=== PATIENT | male | born 1950 | race Caucasian/White ===

== ENCOUNTER 2021-04-04 14:10 | Inpatient (IN) | payer OTHER, MEDICARE ==
[~2021-04-04] VITALS: Ht 167.6 cm; Wt 105.1 kg
[2021-04-04 14:11] VITALS: BP 126/63
[2021-04-04 17:02] VITALS: BP 134/79
[2021-04-04] MEDS ORDERED: LEVOFLOXACIN 750 MG/D5W 150 ML 150 ML IV SCH (18:00)
[2021-04-04] MEDS ORDERED: MORPHINE 2 MG SYG IVP SCH (18:00)
[2021-04-04] MEDS ORDERED: ACETAMINOPHEN 325 MG TAB PO SCH (18:00)
[2021-04-04] MEDS ORDERED: ONDANSETRON 4MG INJ IVP SCH (18:00)
[2021-04-04 18:56] VITALS: BP 128/72
[2021-04-04 19:14] LABS: BASOPHILS % (AUTO) 0.3 % (0.0-5.0); EOSINOPHILS % (AUTO) 0.8 % (0.0-8.0); LYMPHOCYTES % (AUTO) 12.7 % (21.0-51.0); MEAN CORPUSCULAR HEMOGLOBIN 26.7 pg (27.0-33.0); MEAN CORPUSCULAR HGB CONC 31.1 g/dL (32.0-36.0); MEAN CORPUSCULAR VOLUME 85.6 fL (79-99); MONOCYTES % (AUTO) 9.4 % (3.0-13.0); NEUTROPHILS % (AUTO) 75.7 % (40.0-77.0); PLATELET COUNT (AUTO) 334 K/uL (130-400); RED BLOOD CELL COUNT(AUTO) 4.09 MIL/uL (4.50-6.20); RED CELL DISTRIBUTION WIDTH 13.5 % (11.0-15.5); WHITE BLOOD COUNT (AUTO) 14.1 K/uL (4.8-10.8)
[2021-04-04 19:28] LABS: INR 1.04 (0.85-1.15); PROTHROMBIN TIME 11.3 SEC (9.6-11.6)
[2021-04-04 19:34] LABS: CREATININE 1.4 mg/dL (0.5-1.5); POTASSIUM 5.7 mmol/L (3.5-5.1)
[2021-04-04 19:39] VITALS: BP 124/81
[2021-04-04 19:41] LABS: ALBUMIN 3.1 g/dL (3.5-5.0); BILIRUBIN,TOTAL 0.3 mg/dL (0.2-1.0); TOTAL PROTEIN, SERUM 8.5 g/dL (6.0-8.3)
[2021-04-04] MEDS: INSULIN HUMULIN R 100 UNIT/ML 3ML SQ SCH (21:00)
[2021-04-04] MEDS ORDERED: ONDANSETRON 4MG INJ IV PRN (21:00)
[2021-04-04] MEDS: HYDROCODONE/ACETAMINOPHEN 5/325 MG TAB PO PRN (22:25)
[2021-04-04] MEDS: FAMOTIDINE 20MG TAB PO SCH (22:25)
[2021-04-04] MEDS: KAYEXALATE 15GM/60ML PO SCH (23:24)
[2021-04-05] VITALS (7 sets, daily range): BP systolic 93–148; BP diastolic 58–81
[2021-04-05] MEDS ORDERED: CHOL200012 PO (01:35)
[2021-04-05] MEDS ORDERED: ASPI-1114 PO (01:35)
[2021-04-05] MEDS ORDERED: FOLI0.4T6 PO (01:35)
[2021-04-05] MEDS ORDERED: PIOG30TA70 PO (01:35)
[2021-04-05] MEDS ORDERED: LISI20TA24 PO (01:35)
[2021-04-05] MEDS ORDERED: FURO40TA5 PO (01:35)
[2021-04-05] MEDS ORDERED: PRAV40TA3 PO (01:35)
[2021-04-05] MEDS ORDERED: SITA100T12 PO (01:35)
[2021-04-05] MEDS ORDERED: METF-446 PO (01:35)
[2021-04-05] MEDS ORDERED: VITA-395 PO (01:35)
[2021-04-05] MEDS: FUROSEMIDE 20MG VIAL IV SCH ×2 (03:32→11:33)
[2021-04-05] MEDS: KAYEXALATE 15GM/60ML PO SCH (05:30)
[2021-04-05] MEDS: INSULIN HUMULIN R 100 UNIT/ML 3ML SQ SCH ×5 (07:30→21:21)
[2021-04-05 07:55] LABS: BASOPHILS % (AUTO) 0.2 % (0.0-5.0); EOSINOPHILS % (AUTO) 1.2 % (0.0-8.0); HEMATOCRIT 36.1 % (42-54); LYMPHOCYTES % (AUTO) 11.4 % (21.0-51.0); MEAN CORPUSCULAR HEMOGLOBIN 26.4 pg (27.0-33.0); MEAN CORPUSCULAR HGB CONC 30.5 g/dL (32.0-36.0); MEAN CORPUSCULAR VOLUME 86.6 fL (79-99); MONOCYTES % (AUTO) 9.5 % (3.0-13.0); NEUTROPHILS % (AUTO) 76.1 % (40.0-77.0); PLATELET COUNT (AUTO) 315 K/uL (130-400); RED BLOOD CELL COUNT(AUTO) 4.17 MIL/uL (4.50-6.20); RED CELL DISTRIBUTION WIDTH 13.8 % (11.0-15.5); WHITE BLOOD COUNT (AUTO) 12.9 K/uL (4.8-10.8)
[2021-04-05 08:14] LABS: CREATININE 1.4 mg/dL (0.5-1.5); MAGNESIUM 1.8 mg/dL (1.80-2.40); PHOSPHORUS 4.5 mg/dL (2.5-4.9); POTASSIUM 5.9 mmol/L (3.5-5.1)
[2021-04-05 08:30] LABS: HEMOGLOBIN A1C 12.3 % (4.0-6.0)
[2021-04-05] MEDS ORDERED: FAMOTIDINE 20MG TAB PO SCH (09:00)
[2021-04-05] MEDS ORDERED: LEVOFLOXACIN 750 MG/D5W 150 ML 150 ML IV SCH (09:00)
[2021-04-05] MEDS: ENOXAPARIN SODIUM 30 MG/0.3 ML SQ SCH (10:12)
[2021-04-05] MEDS: FAMOTIDINE 20MG TAB PO SCH (10:12)
[2021-04-05 11:29] LABS: CREATININE 1.3 mg/dL (0.5-1.5); POTASSIUM 5.5 mmol/L (3.5-5.1)
[2021-04-05] MEDS: HYDROCODONE/ACETAMINOPHEN 5/325 MG TAB PO PRN ×2 (12:56→20:48)
[2021-04-05 13:06] LABS: APPEARANCE,URINE Clear (CLEAR); BILIRUBIN,URINE Negative (NEGATIVE); COLOR,URINE Yellow (YELLOW); GLUCOSE, URINE (UA) Negative (NEGATIVE); KETONES,URINE Negative (NEGATIVE); LEUKOCYTE ESTERASE ,URINE Negative (NEGATIVE); NITRATE,URINE Negative (NEGATIVE); OCCULT BLOOD,URINE Negative (NEGATIVE); PROTEIN,URINE Negative (NEGATIVE); UROBILINOGEN,URINE 0.2 mg/dL (0.2-1.0)
[2021-04-05] MEDS ORDERED: VANCOMYCIN PROTOCOL PER PHARMACY IV SCH (14:30)
[2021-04-05] MEDS ORDERED: CEFAZOLIN SODIUM 1 GM VIAL IVP SCH (14:30)
[2021-04-05] MEDS ORDERED: [UNRECOGNIZED DRUG - REMARK] MISC STA (15:13)
[2021-04-05] MEDS ORDERED: GADOTERATE MEGLUMINE 5 MMOL/10 ML VIAL IV ONE (15:56)
[2021-04-05] MEDS ORDERED: RENAL DOSE IV SCH (16:00)
[2021-04-05] MEDS ORDERED: KAYEXALATE 15GM/60ML PO ONE (16:00)
[2021-04-05] MEDS: VANCOMYCIN 1.5GM/NS 250ML IV SCH ×2 (17:00)
[2021-04-05] MEDS: MEROPENEM 1 GM VIAL IVP SCH (17:00)
[2021-04-05] MEDS ORDERED: KAYEXALATE 15GM/60ML ONE (18:16)
[2021-04-05] MEDS: INSULIN GLARGINE 100 UNITS/ML 10 ML VIAL SQ SCH (21:21)
[2021-04-06] VITALS (8 sets, daily range): BP systolic 118–152; BP diastolic 64–77
[2021-04-06] MEDS: FUROSEMIDE 20MG VIAL IV SCH ×2 (00:18→11:33)
[2021-04-06] MEDS: MEROPENEM 1 GM VIAL IVP SCH ×2 (05:21→15:52)
[2021-04-06 06:46] LABS: BASOPHILS % (AUTO) 0.3 % (0.0-5.0); EOSINOPHILS % (AUTO) 2.1 % (0.0-8.0); HEMATOCRIT 34.8 % (42-54); LYMPHOCYTES % (AUTO) 10.4 % (21.0-51.0); MEAN CORPUSCULAR HEMOGLOBIN 26.1 pg (27.0-33.0); MEAN CORPUSCULAR HGB CONC 30.2 g/dL (32.0-36.0); MEAN CORPUSCULAR VOLUME 86.6 fL (79-99); MONOCYTES % (AUTO) 9.8 % (3.0-13.0); NEUTROPHILS % (AUTO) 76.2 % (40.0-77.0); PLATELET COUNT (AUTO) 314 K/uL (130-400); RED BLOOD CELL COUNT(AUTO) 4.02 MIL/uL (4.50-6.20); RED CELL DISTRIBUTION WIDTH 13.6 % (11.0-15.5); WHITE BLOOD COUNT (AUTO) 13.1 K/uL (4.8-10.8)
[2021-04-06 07:03] LABS: ALBUMIN 2.5 g/dL (3.5-5.0); BILIRUBIN,TOTAL 0.2 mg/dL (0.2-1.0); CREATININE 1.2 mg/dL (0.5-1.5); CRP QUANTITATIVE 159.4 mg/L (0.00-9.0); POTASSIUM 4.9 mmol/L (3.5-5.1); TOTAL PROTEIN, SERUM 7.5 g/dL (6.0-8.3)
[2021-04-06 07:48] LABS: ERYTHROCYTE SEDIMENTATION RATE 80 MM/HR (0-20)
[2021-04-06] MEDS: INSULIN HUMULIN R 100 UNIT/ML 3ML SQ SCH ×7 (08:49→20:17)
[2021-04-06] MEDS: FAMOTIDINE 20MG TAB PO SCH (08:50)
[2021-04-06] MEDS: ENOXAPARIN SODIUM 30 MG/0.3 ML SQ SCH (08:50)
[2021-04-06] MEDS: HYDROCODONE/ACETAMINOPHEN 5/325 MG TAB PO PRN ×2 (11:31→20:19)
[2021-04-06] MEDS: VANCOMYCIN 1.5GM/NS 250ML IV SCH ×2 (15:52)
[2021-04-06] MEDS: SIMVASTATIN 20 MG TABLET PO SCH (20:15)
[2021-04-06] MEDS: INSULIN GLARGINE 100 UNITS/ML 10 ML VIAL SQ SCH (20:16)
[2021-04-07 00:04] VITALS: BP 121/59
[2021-04-07] MEDS: FUROSEMIDE 20MG VIAL IV SCH ×3 (00:15→23:43)
[2021-04-07] MEDS: HYDROCODONE/ACETAMINOPHEN 5/325 MG TAB PO PRN ×4 (00:16→20:17)
[2021-04-07] MEDS: MEROPENEM 1 GM VIAL IVP SCH ×2 (03:19→17:37)
[2021-04-07 03:43] VITALS: BP 123/58
[2021-04-07 04:56] LABS: BASOPHILS % (AUTO) 0.3 % (0.0-5.0); EOSINOPHILS % (AUTO) 2.4 % (0.0-8.0); HEMATOCRIT 32.2 % (42-54); LYMPHOCYTES % (AUTO) 13.5 % (21.0-51.0); MEAN CORPUSCULAR HEMOGLOBIN 26.8 pg (27.0-33.0); MEAN CORPUSCULAR HGB CONC 31.7 g/dL (32.0-36.0); MEAN CORPUSCULAR VOLUME 84.5 fL (79-99); MONOCYTES % (AUTO) 11.4 % (3.0-13.0); PLATELET COUNT (AUTO) 333 K/uL (130-400); RED BLOOD CELL COUNT(AUTO) 3.81 MIL/uL (4.50-6.20); RED CELL DISTRIBUTION WIDTH 13.4 % (11.0-15.5); WHITE BLOOD COUNT (AUTO) 14.6 K/uL (4.8-10.8)
[2021-04-07] MEDS: INSULIN HUMULIN R 100 UNIT/ML 3ML SQ SCH ×7 (06:52→23:46)
[2021-04-07 07:46] VITALS: BP 127/62
[2021-04-07] MEDS: CHOLECALCIFEROL 50 MCG PO SCH (09:00)
[2021-04-07] MEDS: ASPIRIN 81MG CHEW TAB PO SCH (09:04)
[2021-04-07] MEDS: LISINOPRIL 20 MG TABLET PO SCH (09:05)
[2021-04-07] MEDS: FAMOTIDINE 20MG TAB PO SCH (09:05)
[2021-04-07] MEDS: FOLIC ACID 1 MG TABLET PO SCH (09:05)
[2021-04-07] MEDS: ENOXAPARIN SODIUM 30 MG/0.3 ML SQ SCH (09:05)
[2021-04-07 10:50] VITALS: BP 125/61
[2021-04-07 11:37] LABS: ALBUMIN 2.2 g/dL (3.5-5.0); BILIRUBIN,TOTAL 0.2 mg/dL (0.2-1.0); CREATININE 1.2 mg/dL (0.5-1.5); POTASSIUM 4.1 mmol/L (3.5-5.1)
[2021-04-07] MEDS ORDERED: COMPOUND IV REFRIGERATED 1 EACH IVSOLN MISC PRN (12:30)
[2021-04-07 16:23] VITALS: BP 135/65
[2021-04-07] MEDS ORDERED: IOHEXOL-350 50ML VIAL IV ONE (18:07)
[2021-04-07] MEDS ORDERED: IOHEXOL 350 MG/ML 100ML INFUS..BTL IV ONE (18:07)
[2021-04-07 20:00] VITALS: BP 134/65
[2021-04-07] MEDS: VANCOMYCIN KIT 1 GM/250 ML IV.KIT IV SCH (23:42)
[2021-04-07] MEDS: 0.9% NACL 250ML 250 ML IV SCH (23:43)
[2021-04-07] MEDS: SIMVASTATIN 20 MG TABLET PO SCH (23:43)
[2021-04-07] MEDS: INSULIN GLARGINE 100 UNITS/ML 10 ML VIAL SQ SCH (23:45)
[2021-04-08] MEDS: HYDROCODONE/ACETAMINOPHEN 5/325 MG TAB PO PRN ×3 (03:00→18:50)
[2021-04-08] MEDS: MEROPENEM 1 GM VIAL IVP SCH ×2 (03:39→17:32)
[2021-04-08 04:08] VITALS: BP 131/65
[2021-04-08 05:48] LABS: BASOPHILS % (AUTO) 0.4 % (0.0-5.0); LYMPHOCYTES % (AUTO) 14.2 % (21.0-51.0); MEAN CORPUSCULAR HGB CONC 30.6 g/dL (32.0-36.0); MEAN CORPUSCULAR VOLUME 84.9 fL (79-99); NEUTROPHILS % (AUTO) 68.9 % (40.0-77.0); PLATELET COUNT (AUTO) 331 K/uL (130-400); RED BLOOD CELL COUNT(AUTO) 3.77 MIL/uL (4.50-6.20); RED CELL DISTRIBUTION WIDTH 13.3 % (11.0-15.5); WHITE BLOOD COUNT (AUTO) 15.6 K/uL (4.8-10.8)
[2021-04-08] MEDS: INSULIN HUMULIN R 100 UNIT/ML 3ML SQ SCH ×7 (06:54→20:07)
[2021-04-08 07:33] VITALS: BP 136/73
[2021-04-08] MEDS: VANCOMYCIN KIT 1 GM/250 ML IV.KIT IV SCH (08:20)
[2021-04-08] MEDS: LISINOPRIL 20 MG TABLET PO SCH (08:21)
[2021-04-08] MEDS: ASPIRIN 81MG CHEW TAB PO SCH (08:21)
[2021-04-08] MEDS: FAMOTIDINE 20MG TAB PO SCH (08:21)
[2021-04-08] MEDS: 0.9% NACL 250ML 250 ML IV SCH (08:21)
[2021-04-08] MEDS: FOLIC ACID 1 MG TABLET PO SCH (08:21)
[2021-04-08] MEDS: ENOXAPARIN SODIUM 30 MG/0.3 ML SQ SCH (08:22)
[2021-04-08] MEDS: CHOLECALCIFEROL 50 MCG PO SCH (08:22)
[2021-04-08] MEDS: FUROSEMIDE 20MG VIAL IV SCH (11:50)
[2021-04-08 12:00] VITALS: BP 134/68
[2021-04-08 16:00] VITALS: BP 137/62
[2021-04-08] MEDS: SIMVASTATIN 20 MG TABLET PO SCH (19:59)
[2021-04-08 20:00] VITALS: BP 131/61
[2021-04-08] MEDS: INSULIN GLARGINE 100 UNITS/ML 10 ML VIAL SQ SCH (20:06)
[2021-04-09] VITALS (7 sets, daily range): BP systolic 105–147; BP diastolic 54–74
[2021-04-09] MEDS: FUROSEMIDE 20MG VIAL IV SCH ×3 (00:06→23:29)
[2021-04-09] MEDS: MEROPENEM 1 GM VIAL IVP SCH ×2 (02:56→16:57)
[2021-04-09] MEDS: HYDROCODONE/ACETAMINOPHEN 5/325 MG TAB PO PRN ×2 (04:25→12:30)
[2021-04-09] MEDS ORDERED: MORPHINE 2 MG SYG ONE (05:35)
[2021-04-09] MEDS: INSULIN HUMULIN R 100 UNIT/ML 3ML SQ SCH ×7 (05:42→21:21)
[2021-04-09] MEDS ORDERED: VANCOMYCIN 500MG+NS 100ML IVPB IV SCH (06:00)
[2021-04-09] MEDS ORDERED: MORPHINE 2 MG SYG IVP PRN (06:00)
[2021-04-09] MEDS ORDERED: 0.9%NACL 100ML 100 ML IV SCH (06:00)
[2021-04-09] MEDS: ASPIRIN 81MG CHEW TAB PO SCH (08:43)
[2021-04-09] MEDS: FOLIC ACID 1 MG TABLET PO SCH (08:43)
[2021-04-09] MEDS: FAMOTIDINE 20MG TAB PO SCH (08:43)
[2021-04-09] MEDS: ENOXAPARIN SODIUM 30 MG/0.3 ML SQ SCH (08:44)
[2021-04-09] MEDS: CHOLECALCIFEROL 50 MCG PO SCH (08:44)
[2021-04-09] MEDS: LISINOPRIL 20 MG TABLET PO SCH (08:44)
[2021-04-09] MEDS: SIMVASTATIN 20 MG TABLET PO SCH (20:11)
[2021-04-09] MEDS: INSULIN GLARGINE 100 UNITS/ML 10 ML VIAL SQ SCH (21:21)
[2021-04-09] MEDS ORDERED: HYDROCODONE/ACETAMINOPHEN 5/325 MG TAB ONE (22:24)
[2021-04-10] MEDS: MEROPENEM 1 GM VIAL IVP SCH ×2 (03:35→15:26)
[2021-04-10 04:00] VITALS: BP 139/74
[2021-04-10] MEDS: INSULIN HUMULIN R 100 UNIT/ML 3ML SQ SCH ×7 (06:41→21:10)
[2021-04-10] MEDS: HYDROCODONE/ACETAMINOPHEN 5/325 MG TAB PO PRN ×3 (07:50→20:20)
[2021-04-10 07:59] VITALS: BP 107/60
[2021-04-10] MEDS: CHOLECALCIFEROL 50 MCG PO SCH (09:00)
[2021-04-10] MEDS: LISINOPRIL 20 MG TABLET PO SCH (09:20)
[2021-04-10] MEDS: FAMOTIDINE 20MG TAB PO SCH (09:20)
[2021-04-10] MEDS: ASPIRIN 81MG CHEW TAB PO SCH (09:20)
[2021-04-10] MEDS: FOLIC ACID 1 MG TABLET PO SCH (09:20)
[2021-04-10] MEDS: ENOXAPARIN SODIUM 30 MG/0.3 ML SQ SCH (09:21)
[2021-04-10 11:39] VITALS: BP 134/72
[2021-04-10] MEDS: FUROSEMIDE 20MG VIAL IV SCH (12:01)
[2021-04-10] MEDS: GENTAMICIN 15 GM CREAM TP SCH (15:26)
[2021-04-10 16:00] VITALS: BP 141/72
[2021-04-10 16:01] LABS: INR 1.06 (0.85-1.15); PROTHROMBIN TIME 11.5 SEC (9.6-11.6)
[2021-04-10 16:02] LABS: PARTIAL THROMBOPLASTIN TIME 29.6 SEC (26.3-35.5)
[2021-04-10] MEDS ORDERED: VANCOMYCIN 750MG VIAL ONE (18:18)
[2021-04-10] MEDS ORDERED: 0.9% NACL 250ML 250 ML ONE (18:19)
[2021-04-10 20:00] VITALS: BP 143/73
[2021-04-10] MEDS ORDERED: 0.9%NACL 100ML 100 ML IV SCH (20:00)
[2021-04-10] MEDS ORDERED: VANCOMYCIN 500MG+NS 100ML IVPB IV SCH (20:00)
[2021-04-10] MEDS: SIMVASTATIN 20 MG TABLET PO SCH (20:17)
[2021-04-10] MEDS: INSULIN GLARGINE 100 UNITS/ML 10 ML VIAL SQ SCH (21:09)
[2021-04-11] VITALS: BP 140/72
[2021-04-11] MEDS: MEROPENEM 1 GM VIAL IVP SCH ×2 (03:43→17:02)
[2021-04-11 04:00] VITALS: BP 135/73
[2021-04-11] MEDS: INSULIN HUMULIN R 100 UNIT/ML 3ML SQ SCH ×6 (06:04→17:04)
[2021-04-11] MEDS: HYDROCODONE/ACETAMINOPHEN 5/325 MG TAB PO PRN (07:57)
[2021-04-11 08:02] VITALS: BP 121/63
[2021-04-11] MEDS: CHOLECALCIFEROL 50 MCG PO SCH (09:00)
[2021-04-11] MEDS: FOLIC ACID 1 MG TABLET PO SCH (10:23)
[2021-04-11] MEDS: FAMOTIDINE 20MG TAB PO SCH (10:23)
[2021-04-11] MEDS: ASPIRIN 81MG CHEW TAB PO SCH (10:23)
[2021-04-11] MEDS: LISINOPRIL 20 MG TABLET PO SCH (10:23)
[2021-04-11] MEDS: ENOXAPARIN SODIUM 30 MG/0.3 ML SQ SCH (10:27)
[2021-04-11] MEDS: GENTAMICIN 15 GM CREAM TP SCH (10:31)
[2021-04-11] MEDS: FUROSEMIDE 20MG VIAL IV SCH ×2 (11:35)
[2021-04-11 12:00] VITALS: BP 147/71
[2021-04-11 16:00] VITALS: BP 139/78
== END 2021-04-11 18:15 | DRG 623 ==
LOC: EDH 14:10 → EDUNIT# 14:10 → EDHIP 14:11 → 3DH 04-06 10:00
PROVIDERS: ADMIT Hospitalist; ATTEND Hospitalist
PROC: 0JBQ0ZZ Excision of Right Foot Subcutaneous Tissue and Fascia, Open Approach (ICD-10-PCS; principal; 2021-04-06)
PROC: 05HY33Z Insertion of Infusion Device into Upper Vein, Percutaneous Approach (ICD-10-PCS; 2021-04-11)
DX: E11.621 Type 2 diabetes mellitus with foot ulcer (principal); L03.115 Cellulitis of right lower limb; L02.611 Cutaneous abscess of right foot; M86.8X7 Other osteomyelitis, ankle and foot; E46 Unspecified protein-calorie malnutrition; L03.116 Cellulitis of left lower limb; E11.42 Type 2 diabetes mellitus with diabetic polyneuropathy; E11.51 Type 2 diabetes mellitus with diabetic peripheral angiopathy without gangrene; L97.519 Non-pressure chronic ulcer of other part of right foot with unspecified severity; M19.90 Unspecified osteoarthritis, unspecified site; E11.69 Type 2 diabetes mellitus with other specified complication; E66.01 Morbid (severe) obesity due to excess calories; E78.00 Pure hypercholesterolemia, unspecified; E78.5 Hyperlipidemia, unspecified; E87.5 Hyperkalemia; F41.9 Anxiety disorder, unspecified; I10 Essential (primary) hypertension; L84 Corns and callosities; R53.81 Other malaise; Z96.651 Presence of right artificial knee joint; Z20.822 Contact with and (suspected) exposure to COVID-19; Z68.37 Body mass index [BMI] 37.0-37.9, adult; Z79.899 Other long term (current) drug therapy; Z88.0 Allergy status to penicillin; Z90.49 Acquired absence of other specified parts of digestive tract; Z83.3 Family history of diabetes mellitus; Z82.3 Family history of stroke; Z82.49 Family history of ischemic heart disease and other diseases of the circulatory system
CPT/HCPCS: 36415; 71045; 73630; 73700; 73720; 75635; 80048; 80053; 80061; 80202; 81003; 82550; 82948; 83036; 83605; 83735; 84100; 84145; 84484; 85025; 85610; 85651; 85730; 86140; 87040; 87070; 87076; 87077; 87088; 87186; 87635; 93005; 93925; 97039; C1894; C9803; G0378; J1650; J1815; J1940; J1956; J2185; J2405; J3370; J7050; Q9967

== ENCOUNTER → 2021-06-28 | Outpatient (CLI) | payer OTHER, MEDICARE ==
[~2021-06-28] MED LIST: ASPI-1114 PO; CHOL200012 PO; FOLI0.4T6 PO; FURO40TA5 PO; LIDOCAINE HCL 4% LTA SOL 4 ML VIAL TP ONE; LISI20TA24 PO; METF-446 PO; PIOG30TA70 PO; PRAV40TA3 PO; SITA100T12 PO; VITA-395 PO
== END | disposition home or self-care (01) ==
LOC: WHH 08:11
PROVIDERS: ATTEND Podiatrist Foot & Ankle Surgery
DX: T81.89XD Other complications of procedures, not elsewhere classified, subsequent encounter (principal); E11.621 Type 2 diabetes mellitus with foot ulcer; L97.512 Non-pressure chronic ulcer of other part of right foot with fat layer exposed; E11.51 Type 2 diabetes mellitus with diabetic peripheral angiopathy without gangrene; E11.69 Type 2 diabetes mellitus with other specified complication; M86.171 Other acute osteomyelitis, right ankle and foot; M19.90 Unspecified osteoarthritis, unspecified site; E66.9 Obesity, unspecified; Z68.37 Body mass index [BMI] 37.0-37.9, adult; Z90.49 Acquired absence of other specified parts of digestive tract; Z98.890 Other specified postprocedural states; Z79.4 Long term (current) use of insulin; Z79.899 Other long term (current) drug therapy; Z79.82 Long term (current) use of aspirin; Y83.8 Other surgical procedures as the cause of abnormal reaction of the patient, or of later complication, without mention of misadventure at the time of the procedure
CPT/HCPCS: A6209; G0463

== ENCOUNTER → 2021-08-02 | Outpatient (CLI) | payer OTHER, MEDICARE | END | disposition home or self-care (01) | LOC: WHH 08:03 | PROVIDERS: ATTEND Podiatrist Foot & Ankle Surgery | DX: T81.89XD Other complications of procedures, not elsewhere classified, subsequent encounter (principal); E11.621 Type 2 diabetes mellitus with foot ulcer; L97.512 Non-pressure chronic ulcer of other part of right foot with fat layer exposed; E11.51 Type 2 diabetes mellitus with diabetic peripheral angiopathy without gangrene; E11.69 Type 2 diabetes mellitus with other specified complication; M86.171 Other acute osteomyelitis, right ankle and foot; M19.90 Unspecified osteoarthritis, unspecified site; E66.9 Obesity, unspecified; Z68.37 Body mass index [BMI] 37.0-37.9, adult; Z90.49 Acquired absence of other specified parts of digestive tract; Z98.890 Other specified postprocedural states; Z79.4 Long term (current) use of insulin; Z79.899 Other long term (current) drug therapy; Z79.82 Long term (current) use of aspirin; Y83.8 Other surgical procedures as the cause of abnormal reaction of the patient, or of later complication, without mention of misadventure at the time of the procedure | CPT/HCPCS: 11042; A6209 ==

== ENCOUNTER → 2021-08-16 | Outpatient (CLI) | payer OTHER, MEDICARE | END | disposition home or self-care (01) | LOC: WHH 08:00 | PROVIDERS: ATTEND Podiatrist Foot & Ankle Surgery | DX: T81.89XD Other complications of procedures, not elsewhere classified, subsequent encounter (principal); E11.621 Type 2 diabetes mellitus with foot ulcer; L97.512 Non-pressure chronic ulcer of other part of right foot with fat layer exposed; E11.51 Type 2 diabetes mellitus with diabetic peripheral angiopathy without gangrene; E11.69 Type 2 diabetes mellitus with other specified complication; M86.171 Other acute osteomyelitis, right ankle and foot; M19.90 Unspecified osteoarthritis, unspecified site; E66.9 Obesity, unspecified; Z68.37 Body mass index [BMI] 37.0-37.9, adult; Z90.49 Acquired absence of other specified parts of digestive tract; Z98.890 Other specified postprocedural states; Z79.4 Long term (current) use of insulin; Z79.899 Other long term (current) drug therapy; Z79.82 Long term (current) use of aspirin; Y83.8 Other surgical procedures as the cause of abnormal reaction of the patient, or of later complication, without mention of misadventure at the time of the procedure | CPT/HCPCS: 11042; A6209 ==

== ENCOUNTER → 2021-08-30 | Outpatient (CLI) | payer OTHER, MEDICARE | END | disposition home or self-care (01) | LOC: WHH 08:03 | PROVIDERS: ATTEND Podiatrist Foot & Ankle Surgery | DX: T81.89XD Other complications of procedures, not elsewhere classified, subsequent encounter (principal); E11.621 Type 2 diabetes mellitus with foot ulcer; L97.512 Non-pressure chronic ulcer of other part of right foot with fat layer exposed; E11.51 Type 2 diabetes mellitus with diabetic peripheral angiopathy without gangrene; E11.69 Type 2 diabetes mellitus with other specified complication; M86.171 Other acute osteomyelitis, right ankle and foot; M19.90 Unspecified osteoarthritis, unspecified site; E66.9 Obesity, unspecified; Z68.37 Body mass index [BMI] 37.0-37.9, adult; Z90.49 Acquired absence of other specified parts of digestive tract; Z98.890 Other specified postprocedural states; Z79.4 Long term (current) use of insulin; Z79.899 Other long term (current) drug therapy; Z79.82 Long term (current) use of aspirin; Y83.8 Other surgical procedures as the cause of abnormal reaction of the patient, or of later complication, without mention of misadventure at the time of the procedure | CPT/HCPCS: G0463 ==

== ENCOUNTER → 2021-09-13 | Outpatient (CLI) | payer OTHER, MEDICARE ==
[~2021-09-13] MED LIST changes: -LIDOCAINE HCL 4% LTA SOL 4 ML VIAL TP ONE
== END | disposition home or self-care (01) ==
LOC: WHH 08:06
PROVIDERS: ATTEND Podiatrist Foot & Ankle Surgery
DX: T81.89XD Other complications of procedures, not elsewhere classified, subsequent encounter (principal); E11.621 Type 2 diabetes mellitus with foot ulcer; L97.518 Non-pressure chronic ulcer of other part of right foot with other specified severity; E11.51 Type 2 diabetes mellitus with diabetic peripheral angiopathy without gangrene; E11.69 Type 2 diabetes mellitus with other specified complication; M86.171 Other acute osteomyelitis, right ankle and foot; E66.9 Obesity, unspecified; Z68.37 Body mass index [BMI] 37.0-37.9, adult; Z90.49 Acquired absence of other specified parts of digestive tract; Z98.890 Other specified postprocedural states; Z79.4 Long term (current) use of insulin; Z79.899 Other long term (current) drug therapy; Z79.82 Long term (current) use of aspirin; Y83.8 Other surgical procedures as the cause of abnormal reaction of the patient, or of later complication, without mention of misadventure at the time of the procedure
CPT/HCPCS: G0463